=== PATIENT | female | born 1980 | race Asian ===

== ENCOUNTER 2019-03-06 10:44 | Observation (INO) | payer OTHER ==
[~2019-03-06] VITALS: Ht 172.7 cm; Wt 102.1 kg
== END 2019-03-06 16:00 | disposition home or self-care (01) ==
LOC: SPU 10:44
PROVIDERS: ADMIT Specialist; ATTEND Specialist
DX: O48.0 Post-term pregnancy (principal); Z3A.41 41 weeks gestation of pregnancy
CPT/HCPCS: 59025; 76815; 81002; G0378

== ENCOUNTER 2019-03-11 12:02 | Inpatient (IN) | payer OTHER ==
[~2019-03-11] VITALS: Ht 172.7 cm; Wt 103.4 kg
[2019-03-11] MEDS ORDERED: LR 1,000 ML IV SCH (19:05)
[2019-03-11] MEDS ORDERED: OXYTOCIN/0.9 % SODIUM CHLORIDE 1,000 ML IV SCH (19:05)
[2019-03-11] MEDS ORDERED: DINOPROSTONE 10 MG SUPP VG ONE (19:15)
[2019-03-11] MEDS ORDERED: NALBUPHINE HCL 10 MG/ML AMP IVP PRN (19:15)
[2019-03-11 19:54] LABS: BASOPHILS # (AUTO) 0.1 K/uL (0.0-0.2); BASOPHILS % (AUTO) 0.7 % (0.0-2.0); EOSINOPHILS # (AUTO) 0.1 K/uL (0.0-0.4); EOSINOPHILS % (AUTO) 0.7 % (0.0-4.0); HEMATOCRIT 35.1 % (36-48); HEMOGLOBIN 11.7 g/dL (12.0-16.0); LYMPHOCYTES # (AUTO) 1.7 K/uL (1.0-5.5); MEAN CORPUSCULAR HEMOGLOBIN 29 pg (27-31); MEAN CORPUSCULAR HGB CONC 33 % (32-36); MEAN CORPUSCULAR VOLUME 88 fL (79.0-98.0); MONOCYTES # (AUTO) 0.6 K/uL (0.0-1.0); MONOCYTES % (AUTO) 6.5 % (1.7-9.3); NEUTROPHILS # (AUTO) 6.3 K/uL (1.8-7.7); NEUTROPHILS % (AUTO) 72.1 % (40.0-70.0); PLATELET COUNT (AUTO) 164 K/uL (130-430); RED BLOOD CELL COUNT(AUTO) 3.99 MIL/uL (4.2-6.2); RED CELL DISTRIBUTION WIDTH 15.3 % (9.0-15.0); WHITE BLOOD COUNT (AUTO) 8.7 K/uL (4.8-10.8)
[2019-03-11 20:03] VITALS: BP_SYST 141
[2019-03-11] MEDS ORDERED: MORPHINE SULFATE 10MG/10ML PF AMP EP ONE (21:15)
[2019-03-11] MEDS ORDERED: fentaNYL CITRATE/PF 100 MCG/2 ML AMP IVP ONE (21:15)
[2019-03-11] MEDS ORDERED: SODIUM BICARBONATE 4% (NEUT) 5 ML VIAL INJ ONE (21:15)
[2019-03-11] MEDS ORDERED: OXYTOCIN 10 UNIT/ML VIAL IV ONE (21:15)
[2019-03-11] MEDS ORDERED: LIDOCAINE 2%, 20 ML MDV INJ ONE (21:15)
[2019-03-11] MEDS ORDERED: ONDANSETRON HCL 4 MG/2 ML VIAL IVP ONE (21:15)
[2019-03-11] MEDS ORDERED: DIPHENHYDRAMINE INJ 50 MG/ML VIAL IV ONE (21:15)
[2019-03-11] MEDS ORDERED: NS IRRIG SOLN 1000 ML IR ONE (21:15)
[2019-03-11] MEDS ORDERED: LR 1,000 ML IV.SOLN IV ONE (21:15)
[2019-03-12] MEDS ORDERED: fentaNYL CITRATE/PF 100 MCG/2 ML AMP ONE (10:00)
[2019-03-12] MEDS ORDERED: ROPIVACAINE HCL/PF 0.2% 200 ML ONE (10:00)
[2019-03-12] MEDS ORDERED: ePHEDrine sulfate 50 MG/ML VIAL IVP PRN (10:40)
[2019-03-12] MEDS ORDERED: FENT2mCg/mL-ROPIVA0.2%/NS EPID 200 ML EP SCH (10:40)
[2019-03-12] MEDS ORDERED: CEFAZOLIN 2 GM IVPB PREMIX 50 ML IV ONE (21:03)
[2019-03-12] MEDS ORDERED: DOCUSATE SODIUM 100 MG CAPSULE PO PRN (21:30)
[2019-03-12] MEDS ORDERED: ONDANSETRON HCL 4 MG/2 ML VIAL IVP PRN (21:30)
[2019-03-13] MEDS ORDERED: SIMETHICONE 80 MG TAB.CHEW ONE (09:52)
[2019-03-13] MEDS ORDERED: IBUPROFEN 800 MG TABLET ONE ×2 (12:11→18:24)
[2019-03-13] MEDS ORDERED: SIMETHICONE 80 MG TAB.CHEW PO ONE (22:45)
[2019-03-13] MEDS ORDERED: OXYCODONE/ACETAMINOPHEN 5-325 TABLET PO PRN (22:45)
[2019-03-13] MEDS: DOCUSATE SODIUM 100 MG CAPSULE PO PRN (22:49)
[2019-03-13] MEDS: OXYCODONE/ACETAMINOPHEN 5-325 TABLET PO PRN (22:50)
[2019-03-14] MEDS: IBUPROFEN 800 MG TABLET PO PRN ×3 (00:14→12:01)
[2019-03-14] MEDS: OXYCODONE/ACETAMINOPHEN 5-325 TABLET PO PRN (06:05)
[2019-03-14] MEDS ORDERED: SIMETHICONE 80 MG TAB.CHEW PO SCH (07:15)
[2019-03-14] MEDS ORDERED: MORPHINE 4 MG/ML INJ. SYRINGE IVP PRN (10:00)
[2019-03-14] MEDS: DOCUSATE SODIUM 100 MG CAPSULE PO PRN (12:01)
[2019-03-14] MEDS ORDERED: ROPIVACAINE 40 MG/20 ML AMP EP ONE (15:24)
[2019-04-03 09:35] LABS: HEMATOCRIT 30.9 % (36-48); HEMOGLOBIN 10.3 g/dL (12.0-16.0); MEAN CORPUSCULAR HEMOGLOBIN 30 pg (27-31); MEAN CORPUSCULAR HGB CONC 33 % (32-36); MEAN CORPUSCULAR VOLUME 89 fL (79.0-98.0); RED BLOOD CELL COUNT(AUTO) 3.48 MIL/uL (4.2-6.2); WHITE BLOOD COUNT (AUTO) 15.2 K/uL (4.8-10.8)
[2019-04-03 09:36] LABS: BASOPHILS % (AUTO) 0.3 % (0.0-2.0); EOSINOPHILS % (AUTO) 0.1 % (0.0-4.0); LYMPHOCYTES # (AUTO) 1.8 K/uL (1.0-5.5); MONOCYTES # (AUTO) 0.9 K/uL (0.0-1.0); NEUTROPHILS # (AUTO) 12.4 K/uL (1.8-7.7); NEUTROPHILS % (AUTO) 81.6 % (40.0-70.0); PLATELET COUNT (AUTO) 137 K/uL (130-430); RED CELL DISTRIBUTION WIDTH 15.3 % (9.0-15.0)
== END 2019-03-14 15:25 | disposition home or self-care (01) | DRG 788 ==
LOC: SPU 18:46
PROVIDERS: ADMIT Specialist; ATTEND Specialist
PROC: 10D00Z1 Extraction of Products of Conception, Low, Open Approach (ICD-10-PCS; principal; 2019-03-12 21:00)
DX: O48.0 Post-term pregnancy (principal); O33.9 Maternal care for disproportion, unspecified; O62.1 Secondary uterine inertia; O76 Abnormality in fetal heart rate and rhythm complicating labor and delivery; O69.81X0 Labor and delivery complicated by cord around neck, without compression, not applicable or unspecified; Z3A.41 41 weeks gestation of pregnancy; Z37.0 Single live birth
CPT/HCPCS: 36415; 81002-TC; 85025; 86592; 86886; 86900; 86901; 94760; J0690; J1200; J2001; J2270; J2274; J2300; J2405; J2590; J2795; J3010; J7120